=== PATIENT | male | born 1960 | race Caucasian/White ===

== ENCOUNTER 2020-09-14 11:32 | Emergency (ER) | payer OTHER ==
[~2020-09-14] VITALS: Ht 180.3 cm; Wt 136.1 kg
[2020-09-14] MEDS ORDERED: FLOMAX0.4 MG PO (11:58)
[2020-09-14] MEDS ORDERED: ALLOPURINOL100 MG PO (11:58)
[2020-09-14] MEDS ORDERED: PREDNISONE20 MG PO (11:59)
[2020-09-14] MEDS ORDERED: HYDROCODON-ACE1 EA11 PO (13:53)
== END 2020-09-14 14:20 | disposition home or self-care (01) ==
LOC: ED 11:32
DX: S92.312A Displaced fracture of first metatarsal bone, left foot, initial encounter for closed fracture (principal); S92.322A Displaced fracture of second metatarsal bone, left foot, initial encounter for closed fracture; S40.012A Contusion of left shoulder, initial encounter; W01.198A Fall on same level from slipping, tripping and stumbling with subsequent striking against other object, initial encounter; I10 Essential (primary) hypertension; Z79.899 Other long term (current) drug therapy; Z79.52 Long term (current) use of systemic steroids
CPT/HCPCS: 73030; 73630; 99283-25